=== PATIENT | female | born 1985 | race Asian ===

== ENCOUNTER 2019-04-30 18:55 | Emergency (ER) | payer OTHER ==
[2019-04-30] MEDS ORDERED: Fluorescein Opthalmic Strip ONE (19:08)
[2019-04-30] MEDS ORDERED: Proparacaine 0.5% Opth 15 ML BOT ONE (19:08)
== END 2019-04-30 19:56 | disposition home or self-care (01) ==
LOC: ERS 18:55
DX: O98.513 Other viral diseases complicating pregnancy, third trimester (principal); B02.30 Zoster ocular disease, unspecified; Z3A.36 36 weeks gestation of pregnancy
CPT/HCPCS: 99283

== ENCOUNTER 2019-05-02 20:41 | Emergency (ER) | payer OTHER ==
[2019-05-02] MEDS ORDERED: Acetaminophen 500 MG TAB ONE (21:34)
[2019-05-02] MEDS ORDERED: HYDROcodone/Acetaminophen 5/325 mg Tablet ONE (21:34)
== END 2019-05-02 21:38 | disposition home or self-care (01) ==
LOC: ERS 20:41
DX: O98.52 Other viral diseases complicating childbirth (principal); B02.30 Zoster ocular disease, unspecified; Z3A.36 36 weeks gestation of pregnancy
CPT/HCPCS: 99283

== ENCOUNTER 2019-05-24 10:07 | Inpatient (IN) | payer OTHER, SELFPAY ==
--- NOTE | 2019-05-23 23:37 | PDOC.LDHP ---
Labor and Delivery H&P HPI: 33 y/o at 39 and 6/7 weeks presents for scheduled primary for CPD/Contracted Pelvis and declined trial of vaginal delivery. Current gestational age (weeks): 39 Due date: 05/25/10 Grav: 1 Para: 0 Current complications: other (Suspected CPD/Abnormal Pelvic Structure of Mother) Current medications: pre-zuly vitamins Previous surgical history: none Social history: none - Physical Exam Vital signs reviewed and normal: yes General: NAD, resting Heart: RRR Lungs: CTAB Abdomen: gravid Extremeties: no edema FHT: category 1 - Assessment L&D Assessment: scheduled primary section - Plan Plan: admit to L&D, to OR for section
[~2019-05-24 10:07] MED LIST: Bicitra 30 ML UDCUP PO SCH; CEFAZOLIN 2 GM in Premix Bag 1 BAG IVPB SCH; Ondansetron PF 4 MG/2 ML Vial IVP PRN; Promethazine HCl 25 MG/ML VIAL IM PRN; hydrALAZINE 20 MG/ML VIAL SLOW IVP PRN
[2019-05-24] MEDS ORDERED: Bicitra 30 ML UDCUP ONE (10:27)
[2019-05-24 10:57] VITALS: BMI 33.3
[2019-05-24] MEDS ORDERED: FLU VACC QS2019-20(6MOS UP)/PF 60 MCG/0.5 ML SYRINGE IM ONE (11:15)
[2019-05-24] MEDS: Lactated Ringer's 1,000 ML IV SCH ×2 (11:36→15:20)
[2019-05-24 11:45] LABS: Hemoglobin 13.3 g/dL (12.0-16.0); Mean Corpuscular HGB CONC 33.9 g/dL (32.0-36.0); Mean Corpuscular Hemoglobin 29.9 pg (27.0-31.0); Mean Corpuscular Volume 88.3 fL (78.0-98.0); Mean Platelet Volume 9.3 fL (7.4-10.4); Platelet Count 243 thou/uL (130-400); RBC Distribution Width 12.4 % (11.5-14.5); Red Blood Cell (RBC) Count 4.43 mill/uL (4.20-5.40)
[2019-05-24] MEDS ORDERED: Oxytocin 10 UNITS/ML VIAL ONE (11:53)
[2019-05-24] MEDS ORDERED: ePHEDrine/0.9% NaCl/PF SYRINGE 50 mg/10 ml ONE (11:54)
[2019-05-24] MEDS ORDERED: MORPHINE 5 MG/10 ML PF VIAL ONE (12:08)
[2019-05-24 12:27] LABS: HBSAg Index 0.11 S/CO (0-0.99); Hep B Surf Ag Non-Reactive S/CO (NonReactive); Syphilis Antibody Nonreactive (Nonreactive); Syphilis Antibody Index 0.05 S/CO (<1.00 Non-Reactive)
[2019-05-24] MEDS ORDERED: Ketamine 50 MG/ML (10ML VIAL) ONE (12:41)
[2019-05-24] MEDS ORDERED: Midazolam HCl 2 mg/2 ml Vial ONE (12:58)
[2019-05-24] MEDS ORDERED: Ondansetron PF 4 MG/2 ML Vial ONE (12:58)
[2019-05-24] MEDS ORDERED: Ketorolac Tromethamine 30 MG/ML VIAL ONE (12:59)
[2019-05-24] MEDS ORDERED: Naloxone HCl 0.4 mg/ml Vial IV PRN (13:42)
[2019-05-24] MEDS ORDERED: Promethazine HCl 25 MG SUPP PR PRN (13:42)
[2019-05-24] MEDS ORDERED: Promethazine HCl 25 MG/ML VIAL IM PRN ×2 (13:42→16:18)
[2019-05-24] MEDS ORDERED: Ondansetron PF 4 MG/2 ML Vial IVP PRN ×2 (13:42→16:18)
[2019-05-24] MEDS ORDERED: Naloxone HCl 0.4 mg/ml Vial IVP PRN ×2 (13:42)
[2019-05-24] MEDS ORDERED: diphenhydrAMINE 50 MG/ML VIAL IVP PRN (13:42)
[2019-05-24] MEDS ORDERED: Communication Order-Pharmacy FS PRN (13:45)
[2019-05-24] MEDS ORDERED: Morphine 4 MG/ML VIAL ONE (13:51)
[2019-05-24] MEDS ORDERED: Bisacodyl 10 MG SUPP PR PRN (16:18)
[2019-05-24] MEDS ORDERED: Methylergonovine 0.2 MG/ML VIAL IM PRN (16:18)
[2019-05-24] MEDS ORDERED: Misoprostol 200 MCG TAB PR PRN (16:18)
[2019-05-24] MEDS ORDERED: NS / Oxytocin 40 units/1000ml 1,000 ML IV SCH (16:18)
[2019-05-24] MEDS ORDERED: hydrALAZINE 20 MG/ML VIAL SLOW IVP PRN (16:18)
[2019-05-24] MEDS ORDERED: Lanolin Ointment 7 GM TUBE TOP PRN (16:18)
[2019-05-24] MEDS ORDERED: Simethicone Chewable 80 MG TAB PO PRN (16:18)
[2019-05-24] MEDS ORDERED: diphenhydrAMINE 25 MG CAP PO PRN (16:18)
[2019-05-24] MEDS ORDERED: Zolpidem Tartrate 5 MG TAB PO PRN (16:18)
[2019-05-24] MEDS: Docusate Calcium (SURFAK) 240 MG CAP PO SCH (21:49)
[2019-05-24] MEDS: Ketorolac Tromethamine 30 MG/ML VIAL IVP PRN (21:50)
[2019-05-25] MEDS ORDERED: HYDROcodone/Acetaminophen 5/325 mg Tablet PO PRN (01:45)
--- NOTE | 2019-05-25 02:34 | OP ---
DATE OF PROCEDURE: 05/24/2019 TIME OF SERVICE: At 1248 hours, [place] Daylight Savings Time. PREOPERATIVE DIAGNOSES: Intrauterine at 40 weeks and 0 days with suspected cephalopelvic disproportion and contracted pelvic bone structure, not even allowing us to check her cervix in clinic digitally. The patient was offered the options of vaginal delivery versus primary section, and declined vaginal fearing that her pelvis was too small for her baby, which I also believe to most likely be the case. POSTOPERATIVE DIAGNOSES: Intrauterine at 40 weeks and 0 days with suspected cephalopelvic disproportion and contracted pelvic bone structure, not even allowing us to check her cervix in clinic digitally. The patient was offered the options of vaginal delivery versus primary section, and declined vaginal fearing that her pelvis was too small for her baby, which I also believe to most likely be the case. PROCEDURE PERFORMED: Primary low-transverse section. FINDINGS: Viable female weighing 3870 g or 8 pounds 9 ounces. Apgars of 8 and 9. QUANTITATIVE BLOOD LOSS: 429 mL. COMPLICATIONS: None. DETAILS OF THE PROCEDURE: The patient was consented and taken back to the operating room where spinal anesthesia was found to be adequate. She was then prepped and draped in the normal sterile fashion. A timeout was performed by the entire operative team. The incision was then marked with a marking pen tested using sharp pickups. An incision was then made with a scalpel. The incision was carried through the adipose tissue down to the underlying rectus fascia using both sharp dissection as well as cautery. Once the fascia was identified, it was incised in the midline and then the fascial incision was carried through in both lateral directions using sharp as well as cautery dissection techniques. Next, the superior aspect of the rectus fascia was grasped with 2 Vicky clamps, which was tented up and the rectus muscles were dissected off using blunt dissection as well as cautery dissection. Similarly, the inferior aspect of the fascial incision was grasped with 2 Vicky clamps, tented up and the rectus muscles were dissected off bluntly as well as sharply. Next, the rectus muscles were in the midline and the peritoneum identified. The peritoneum was then carefully grasped with 2 hemostats and entered sharply. The peritoneal incision was extended superiorly and inferiorly and bladder blade was placed in the lower abdomen. At this point, the uterus was identified and the bladder flap was then developed using pickups with teeth as well as Metzenbaum scissors in both lateral directions. The bladder flap was then dissected downwards using the continuous loft operator's finger as well as Metzenbaum scissors. The bladder blade was replaced. The lower uterine segment was then identified and entered sharply using a clean scalpel. The uterine incision was then dissected downwards until thin layer of muscle remained and this was entered bluntly using a hemostat to avoid any injury to the baby. The uterine incision was then stretched using two fingers in both lateral directions. An amniotomy was performed artificially using a hemostat and the baby was delivered using fundal pressure in a gentle fashion. Once out, the baby's mouth and nose were bulb suctioned, cord clamped and cut, and the baby was handed to waiting attendants. Next, the uterus was exteriorized, cleared of all clots and debris and the uterine incision was repaired with #1 Monocryl in a running locking fashion. A 2nd suture of the same type was used to obtain complete hemostasis at the uterine incision. The bladder flap was reapproximated using 3-0 Monocryl. Next, patient's left and right adnexa were inspected and appeared to be within normal limits. The posterior cul-de-sac was blotted dry and hemostasis assured. One more look at the uterine incision demonstrated hemostasis. Next, the uterus was replaced back within the abdomen. The peritoneum was reapproximated using 2-0 Monocryl without difficulty. The rectus muscles were then allowed to come back together and 0 chromic was used to aid in reapproximation of the muscle as necessary. The rectus fascia was then reapproximated in a running fashion using 0 Vicryl suture. The adipose tissue was then examined and appeared to be well approximated without any obvious separations. Finally, the skin was reapproximated with 3-0 Monocryl on a Isai needle without difficulty and Dermabond adhesive was applied to the skin. Once the glue was dry, the drapes were removed and the patient was transferred to an ambulatory bed where she was taken to recovery awake and in stable condition. Sponge, lap, and needle counts were correct x3. Job ID: [id number]
[2019-05-25 06:37] LABS: Mean Corpuscular HGB CONC 33.4 g/dL (32.0-36.0); Mean Corpuscular Hemoglobin 30.6 pg (27.0-31.0); Mean Corpuscular Volume 91.5 fL (78.0-98.0); Mean Platelet Volume 8.9 fL (7.4-10.4); Platelet Count 206 thou/uL (130-400); RBC Distribution Width 12.5 % (11.5-14.5); White Blood Cell (WBC) Count 12.9 thou/uL (4.8-10.8)
--- NOTE | 2019-05-25 07:33 | PDOC.PP ---
Post Progress Note Subjective: Doing well. No complaints. Pain controlled. Isaac out but has not urinated. PO intake tolerated: yes (clear liquids) Vital Signs (12 hours) Temp Pulse Resp BP Pulse Ox 05/25/19 00:05 99.4 F 91 18 119/53 L 05/24/19 19:41 99.5 F 83 16 115/58 L 95 Weight Weight 200 lb - Physical Examination General: NAD Respiratory: non-labored breathing Abdominal: lochia (normal), no distention, appropriately TTP Fundus firm & at: below umbilicus Deviation from normal: Dressing clean, dry, and intact Neurological: no gross focal deficits Psychiatric: A&Ox3, normal affect Result Diagrams: 05/25/19 06:30 Additional Labs: Post Labs Blood Type B POSITIVE 05/24/19 11:52 Hep Bs Antigen Non-Reactive S/CO (NonReactive) 05/24/19 11:27 - Assessment/Plan Continue routine postop day 1 management. Encouraged to ambulate today.
[2019-05-25] MEDS: Prenatal Vitamin 1 TAB PO SCH (08:49)
[2019-05-25] MEDS: Docusate Calcium (SURFAK) 240 MG CAP PO SCH ×2 (08:49→21:02)
[2019-05-25] MEDS ORDERED: Varicella virus, LIVE 0.5 ML VIAL SC ONE (09:00)
[2019-05-25] MEDS ORDERED: Adacel (T-DAP) 0.5 ML SYRINGE IM ONE (09:00)
[2019-05-25] MEDS ORDERED: Measles/Mumps/Rubella 10 MCG/0.5 ML VIAL SC ONE (09:00)
[2019-05-25] MEDS: Ketorolac Tromethamine 30 MG/ML VIAL IVP PRN (09:21)
[2019-05-25] MEDS: HYDROcodone/Acetaminophen 5/325 mg Tablet PO PRN ×4 (09:21→22:19)
[2019-05-25] MEDS: Lactated Ringer's 1,000 ML IV SCH (09:36)
[2019-05-25] MEDS: Ibuprofen 800 MG TAB PO SCH ×2 (13:32→21:02)
[2019-05-26] MEDS: Ibuprofen 800 MG TAB PO SCH (05:59)
[2019-05-26] MEDS: Prenatal Vitamin 1 TAB PO SCH (08:57)
[2019-05-26] MEDS: Docusate Calcium (SURFAK) 240 MG CAP PO SCH (08:58)
[2019-05-26 09:13] VITALS: BP 117/70; TEMP 98.7
--- NOTE | 2019-05-26 09:16 | PDOC.PP ---
Post Progress Note Post Day #: 2 Subjective: Patient doing well. No significant overnight events. Patient ambulating with minimal difficulty. PO intake tolerated: yes Flatus: yes Ambulation: yes Vital Signs (12 hours) Temp Pulse Resp BP Pulse Ox 05/26/19 08:55 98.7 F 95 18 117/70 98 05/26/19 01:15 97.5 F L 81 107/55 L Weight Weight 90.718 kg - Physical Examination General: NAD Cardiovascular: RRR Respiratory: non-labored breathing Abdominal: + bowel sounds, lochia (minimal), appropriately TTP Fundus firm & at: below umbilicus Extremities: negative homans (B) Skin: CS incision dry & intact, no rash Neurological: no gross focal deficits Psychiatric: A&Ox3, normal affect Result Diagrams: 05/25/19 06:30 Additional Labs: Post Labs Blood Type B POSITIVE 05/24/19 11:52 Hep Bs Antigen Non-Reactive S/CO (NonReactive) 05/24/19 11:27 (1) Term delivered Code(s): O80 - ENCOUNTER FOR FULL-TERM UNCOMPLICATED DELIVERY Status: Acute (2) S/P primary low transverse Code(s): Z98.891 - HISTORY OF UTERINE SCAR FROM PREVIOUS SURGERY Status: Acute - Assessment/Plan Patient doing well. Meeting all PP milestones. Desires to go home today. Incision clean/dry/intact. Plan for d/c home. Scripts hand written.
== END 2019-05-26 11:30 | disposition home or self-care (01) | DRG 788 ==
LOC: L&D 10:07 → 3SW 14:58
PROVIDERS: ADMIT Obstetrics & Gynecology; ATTEND Obstetrics & Gynecology
PROC: 10D00Z1 Extraction of Products of Conception, Low, Open Approach (ICD-10-PCS; principal; 2019-05-24)
DX: O33.2 Maternal care for disproportion due to inlet contraction of pelvis (principal); Z37.0 Single live birth; Z3A.39 39 weeks gestation of pregnancy
CPT/HCPCS: 36415; 85027; 86780; 86850; 86900; 86901; 87340; J0690; J1885; J2250; J2270; J2274; J2405; J2590